=== PATIENT | female | born 1940 | race African-American/Black ===

== ENCOUNTER 2016-11-05 20:14 | Emergency (ER) | payer MEDICARE, OTHER ==
[~2016-11-05] VITALS: Ht 172.7 cm; Wt 65.0 kg
[2016-11-05 20:17] VITALS: BP 182/89; PULSE 92; RESP 16; TEMP 97.5; O2SAT 100
[2016-11-05] MEDS ORDERED: AMLO5TAB2 PO (22:15)
[2016-11-05] MEDS ORDERED: CLIN1CAP5 PO (22:15)
[2016-11-05] MEDS ORDERED: TRIA37.5 PO (22:15)
--- NOTE | 2016-11-05 22:15 | PD ---
HPI Chief Complaint: Abdominal Pain Time Seen by Provider: 21:59 Travel History International Travel<30 days: No Contact w/Intl Traveler<30days: No Traveled to known affect area: No History of Present Illness HPI Patient is a 76-year-old female with history of hypertension who presents to emergency room complaints of abdominal pain. Patient reports that around 1 PM this afternoon, she began to have abdominal pain. Reports that her abdominal pain is located to her upper abdomen, reports no nausea or vomiting with her symptoms. Denies diarrhea/constipation. Reports that she is unsure if she pulled a muscle. Reports that the pain feels like a sharp and stabbing sensation. Denies chest pain/sob. Reports that she has never had pain like this in the past. Pain is exacerbated with movement. Patient with no fever/ chills, no other c/o. PFSH Past Medical History Hypertension: Yes Past Surgical History Surgical History: No Previous Surgery Social History Alcohol Use: No Tobacco Use: No Substance Use: No Allergies-Medications (Allergen,Severity, Reaction): Coded Allergies: Penicillins (Verified Allergy, Severe, Hives, 11/05/16) Reported Meds & Prescriptions Reported Meds & Active Scripts Active Reported Clindamycin (Clindamycin HCl) 150 Mg Cap 150 Mg PO Q6H Amlodipine (Amlodipine Besylate) 5 Mg Tab 5 Mg PO DAILY Triamterene-Hydrochlorothiazide 37.5-25 Mg Tab 1 Tab PO DAILY Review of Systems General / Constitutional: No: Fever Eyes: No: Visual changes HENT: No: Headaches Cardiovascular: No: Chest Pain or Discomfort Respiratory: No: Shortness of Breath Gastrointestinal: Positive: Abdominal Pain, No: Nausea, Vomiting, Diarrhea, Constipation Genitourinary: No: Urgency, Frequency, Dysuria, Pelvic Pain Musculoskeletal: No: Pain Skin: No Rash Neurologic: No: Weakness Psychiatric: No: Depression Endocrine: No: Polydipsia Hematologic/Lymphatic: No: Easy Bruising Physical Exam Narrative GENERAL: Moderate distress SKIN: Focused skin assessment warm/dry. HEAD: Atraumatic. Normocephalic. EYES: Pupils equal and round. No scleral icterus. No injection or drainage. ENT: No nasal bleeding or discharge. Mucous membranes pink and moist. NECK: Trachea midline. No JVD. CARDIOVASCULAR: Regular rate and rhythm. No murmur appreciated. RESPIRATORY: No accessory muscle use. Clear to auscultation. Breath sounds equal bilaterally. GASTROINTESTINAL: Abdomen soft, upper abdominal tenderness, nondistended. Hepatic and splenic margins not palpable. MUSCULOSKELETAL: No obvious deformities. No clubbing. No cyanosis. No edema. NEUROLOGICAL: Awake and alert. No obvious cranial nerve deficits. Motor grossly within normal limits. Normal speech. PSYCHIATRIC: Appropriate mood and affect; insight and judgment normal. Data Data Last Documented VS Vital Signs Date Time Temp Pulse Resp B/P Pulse Ox O2 Delivery O2 Flow Rate FiO2 11/05/16 22:16 15 97 Room Air 11/05/16 20:17 97.5 92 182/89 Orders Complete Blood Count With Diff (11/05/16 22:06) Comprehensive Metabolic Panel (11/05/16 22:06) Lipase (11/05/16 22:06) Prothrombin Time / Inr (Pt) (11/05/16 22:06) Act Partial Throm Time (Ptt) (11/05/16 22:06) Urinalysis - C+S If Indicated (11/05/16 22:06) Ct Abd/Pel W Iv Contrast(Rout) (11/05/16 22:06) Iv Access Insert/Monitor (11/05/16 22:06) Ecg Monitoring (11/05/16 22:06) Oximetry (11/05/16 22:06) Electrocardiogram (11/05/16 22:06) Chest, Single Ap (11/05/16 22:06) Sodium Chlorid 0.9% 500 Ml Inj (Ns 500 M (11/05/16 22:30) Morphine Inj (Morphine Inj) (11/05/16 22:30) Ondansetron Inj (Zofran Inj) (11/05/16 22:45) Iohexol 350 Inj (Omnipaque 350 Inj) (11/05/16 23:45) Labs Laboratory Tests Test 11/05/16 22:33 White Blood Count 7.1 TH/MM3 Red Blood Count 4.27 MIL/MM3 Hemoglobin 11.9 GM/DL Hematocrit 36.1 % Mean Corpuscular Volume 84.7 FL Mean Corpuscular Hemoglobin 28.0 PG Mean Corpuscular Hemoglobin 33.1 % Concent Red Cell Distribution Width 14.8 % Platelet Count 287 TH/MM3 Mean Platelet Volume 7.9 FL Neutrophils (%) (Auto) 57.7 % Lymphocytes (%) (Auto) 31.6 % Monocytes (%) (Auto) 9.4 % Eosinophils (%) (Auto) 0.8 % Basophils (%) (Auto) 0.5 % Neutrophils # (Auto) 4.1 TH/MM3 Lymphocytes # (Auto) 2.2 TH/MM3 Monocytes # (Auto) 0.7 TH/MM3 Eosinophils # (Auto) 0.1 TH/MM3 Basophils # (Auto) 0.0 TH/MM3 CBC Comment DIFF FINAL Differential Comment Prothrombin Time 10.1 SEC Prothromb Time International 0.9 RATIO Ratio Activated Partial 23.7 SEC Thromboplast Time Sodium Level 140 MEQ/L Potassium Level 3.8 MEQ/L Chloride Level 102 MEQ/L Carbon Dioxide Level 30.1 MEQ/L Anion Gap 8 MEQ/L Blood Urea Nitrogen 25 MG/DL Creatinine 1.32 MG/DL Estimat Glomerular Filtration 47 ML/MIN Rate Random Glucose 182 MG/DL Calcium Level 9.4 MG/DL Total Bilirubin 0.3 MG/DL Aspartate Amino Transf 16 U/L (AST/SGOT) Alanine Aminotransferase 21 U/L (ALT/SGPT) Alkaline Phosphatase 74 U/L Total Protein 8.6 GM/DL Albumin 3.6 GM/DL Lipase 169 U/L [facility] Medical Decision Making Medical Screen Exam Complete: Yes Emergency Medical Condition: Yes Interpretation(s) EKG at 2215: NSR at 80bpm, qt/qtc: 359/395, 1st degree av block, no acute st or t wave changes Vital Signs Date Time Temp Pulse Resp B/P Pulse Ox O2 Delivery O2 Flow Rate FiO2 11/05/16 20:17 97.5 92 16 182/89 100 Room Air Differential Diagnosis Differential includes gastritis, gastroenteritis, pud, acute cholecystitis, muscle strain, pancreatitis, acs Narrative Course Patient is a 76 year old female who presents to ER with c/o of abdominal pain. Patient reports that pain has began around 1pm this afternoon. Reports that pain is sharp and stabbing in nature and has been unrelenting. Reports no nausea an vomiting. Denies chest pain/sob. Reports diffuse upper abdominal pain. Patient uncomfortable at bedside. Patient was placed on platform loader upon arrival to emergency room. Plan to obtain EKG, x-ray of the chest, lab work including liver function tests, CT the abdomen and pelvis with IV contrast. We' ll negative retoucher IV fluids as well as pain medications. Plan to monitor patient. Vital Signs Date Time Temp Pulse Resp B/P Pulse Ox O2 Delivery O2 Flow Rate FiO2 11/05/16 22:16 15 97 Room Air 11/05/16 22:10 15 11/05/16 20:17 97.5 92 16 182/89 100 Room Air CBC & BMP Diagram 11/05/16 22:33 Patient reevaluated, patient feeling much better this time. Patient with complete resolution of symptoms. Abdomen is soft, nontender, nondistended, no peritoneal signs. CT of abdomen and pelvis with no acute intraperitoneal or pelvic process. She does have about 1 cm probable adenoma associated with a right adrenal gland, there is also a 2 cm cystic structure in the left pelvis, patient understands need for follow-up ultrasound in 6 months to ensure stability. Patient was given a copy of her studies at discharge as she will need to follow-up with her primary care doctor with all incidental findings. Signs and symptoms of when to return to the emergency room was reviewed with patient in detail. Diagnosis Primary Impression: Abdominal pain Qualified Code: R10.10 - Pain of upper abdomen Additional Impressions: Dehydration Adrenal adenoma Ovarian cyst Patient Instructions: General Instructions Additional Instructions: Please follow up with your primary care doctor Return to ER if symptoms worsen or progress Return to ER as needed Please bring your CT radiology report to doctor's office for follow-up on all incidental findings from today. Disposition: 01 DISCHARGE HOME Condition: Stable Elli Hairston DO Nov 05, 2016 22:15
[2016-11-05 22:16] VITALS: RESP 15; O2SAT 97
[2016-11-05] MEDS ORDERED: SODIUM CHLORID 0.9% 500 ML INJ 500 ML IV ONE (22:30)
[2016-11-05] MEDS ORDERED: MORPHINE SULFATE 4 MG/ML INJ IV PUSH ONE (22:30)
[2016-11-05] MEDS ORDERED: ONDANSETRON HCL 4 MG/2 ML VIAL IV PUSH ONE (22:45)
--- NOTE | 2016-11-05 22:51 | RADRPT ---
EXAM DATE/TIME: 11/05/2016 22:27 [facility] COMPARISON: No previous studies available for comparison. INDICATIONS : Patient complains of chest/upper abdominal pain. Evaluate for free air. MEDICAL HISTORY : None. SURGICAL HISTORY : None. ENCOUNTER: Initial ACUITY: 1 day PAIN SCORE: 3/10 LOCATION: chest FINDINGS: The lungs are clear without infiltrate, nodule, or mass. There is no appreciable pleural effusion fo r technique. Heart and mediastinum are unremarkable. CONCLUSION: No acute cardiopulmonary disease. Sam Quiros MD on November 05, 2016 at 22:49 Board Certified Radiologist. This report was verified electronically.
[2016-11-05 22:54] LABS: APTT (PATIENT) 23.7 SEC (24.3-30.1); INTERNATIONAL NORMALIZED RATIO 0.9 RATIO; PROTHROMBIN TIME - PATIENT 10.1 SEC (9.8-11.6)
[2016-11-05 23:00] LABS: AUTOMATED NEUTROPHIL # 4.1 TH/MM3 (1.8-7.7); BASOPHIL % 0.5 % (0.0-2.0); EOSINOPHIL # 0.1 TH/MM3 (0-0.4); EOSINOPHIL % 0.8 % (0.0-4.0); HEMATOCRIT 36.1 % (35.0-46.0); HEMO FLAGS DIFF FINAL; LYMPH % 31.6 % (9.0-44.0); LYMPHOCYTE # 2.2 TH/MM3 (1.0-4.8); MEAN CELL VOLUME 84.7 FL (80.0-100.0); MEAN CORPUSCULAR HGB CONC 33.1 % (32.0-36.0); MONO % 9.4 % (0.0-8.0); NEUT % 57.7 % (16.0-70.0); PLATELET COUNT 287 TH/MM3 (150-450); RED BLOOD COUNT 4.27 MIL/MM3 (4.00-5.30); RED CELL DISTRIBUTION WIDTH 14.8 % (11.6-17.2); WHITE BLOOD COUNT 7.1 TH/MM3 (4.0-11.0)
[2016-11-05 23:03] LABS: ANION GAP 8 MEQ/L (5-15); AST (GOT) 16 U/L (15-37); BICARBONATE 30.1 MEQ/L (21.0-32.0); BLOOD UREA NITROGEN 25 MG/DL (7-18); CHLORIDE 102 MEQ/L (98-107); GLOMERULAR FILTRATION RATE 47 ML/MIN (>89); POTASSIUM 3.8 MEQ/L (3.5-5.1); SODIUM (NA) 140 MEQ/L (136-145)
[2016-11-05 23:06] LABS: ALKALINE PHOSPHATASE 74 U/L (45-117); ALT (GPT) 21 U/L (10-53); TOTAL BILIRUBIN ADULT 0.3 MG/DL (0.2-1.0)
[2016-11-05] MEDS ORDERED: IOHEXOL 350 MG/ML 10 ML VIAL (for RAD DIAG) IV ONE (23:45)
--- NOTE | 2016-11-06 | RADRPT ---
EXAM DATE/TIME: 11/05/2016 23:42 [facility] COMPARISON: No previous studies available for comparison. INDICATIONS : Upper abdominal pain. IV CONTRAST: 92 cc Omnipaque 350 (iohexol) IV ORAL CONTRAST: No oral contrast ingested. RADIATION DOSE: 18.59 CTDIvol (mGy) MEDICAL HISTORY : Hypertension. SURGICAL HISTORY : None. ENCOUNTER: Initial ACUITY: 1 day PAIN SCALE: 5/10 LOCATION: Bilateral upper quadrant abdomen TECHNIQUE: Volumetric scanning of the abdomen and pelvis was performed. Using automated exposure control and ad justment of the mA and/or kV according to patient size, radiation dose was kept as low as reasonably achievable to obtain optimal diagnostic quality images. DICOM format image data is available electro nically for review and comparison. FINDINGS: LOWER LUNGS: The visualized lower lungs are clear except for some minimal dependent atelectatic changes. LIVER: Homogeneous density without lesion. There is no dilation of the biliary tree. No calcified gallston es. SPLEEN: Normal size without lesion. PANCREAS: Within normal limits. KIDNEYS: Normal in size and shape. There is no mass, stone or hydronephrosis. ADRENAL GLANDS: 1 cm hypodense nodule in the lateral limb of the right adrenal gland likely an adenoma. VASCULAR: There is no aortic aneurysm. BOWEL/MESENTERY: Minimal diverticular disease of the sigmoid without diverticulitis. Appendix is identified and is rad iographically normal. ABDOMINAL WALL: Within normal limits. RETROPERITONEUM: There is no lymphadenopathy. BLADDER: No wall thickening or mass. REPRODUCTIVE: The patient is status post hysterectomy. There is a 2 cm cystic structure probably associated with th e left ovary. INGUINAL: There is no lymphadenopathy or hernia. MUSCULOSKELETAL: Mild levoscoliosis of the thoracolumbar spine with multilevel facet hypertrophy in the lumbar region. CONCLUSION: 1. I do not see an acute intraperitoneal or pelvic process to explain patient's current clinical symp toms. 2. A 1 cm probable adenoma associated with the right adrenal gland. 3. A 2 cm cystic structure in the left pelvis I believe is associated with the left ovary. In a 76-ye ar-old, I would recommend a followup ultrasound in 6 months to ensure stability. Darrian Cheung MD on November 05, 2016 at 23:54 Board Certified Radiologist. This report was verified electronically.
--- NOTE | 2016-11-06 15:42 | EKG ---
Date Performed: 11/05/2016 Time Performed: 22:15:36 PTAGE: 76 years EKG: Sinus rhythm WITH FIRST DEGREE AV BLOCK VOLTAGE CRITERIA FOR LVH POSSIBLE SEPTAL MYOCARDIAL INFARCTION ABNORMAL E CG NO PREVIOUS TRACING DOCTOR: Cristhian Camacho Interpretating Date/Time 11/06/2016 15:41:56
== END 2016-11-06 03:35 | disposition home or self-care (01) ==
LOC: NEPC 20:14
DX: R10.10 Upper abdominal pain, unspecified (principal); E86.0 Dehydration; D35.01 Benign neoplasm of right adrenal gland; N83.209 Unspecified ovarian cyst, unspecified side; R94.31 Abnormal electrocardiogram [ECG] [EKG]; I10 Essential (primary) hypertension
CPT/HCPCS: 71010; 74177; 80053; 83690; 85025; 85610; 85730; 93005; 96374; 96375; 99285; J2270; J2405; J7040; Q9967